=== PATIENT | male | born 1995 | race Asian ===

== ENCOUNTER 2019-06-20 10:23 | Emergency (ER) | payer MEDICAID, OTHER ==
[~2019-06-20] VITALS: Ht 172.7 cm; Wt 74.8 kg
--- NOTE | 2019-06-20 10:40 | NUR ---
Dr Gandhi at the bedside for MSE.
[2019-06-20 11:00] LABS: BASOPHILS # (AUTO) 0.1 K/uL (0.0-8.0); BASOPHILS % (AUTO) 0.9 % (0.0-2.0); EOSINOPHILS # (AUTO) 0.4 K/uL (0.0-0.7); EOSINOPHILS % (AUTO) 5.2 % (0.0-7.0); HEMATOCRIT 46.4 % (36.7-47.1); HEMOGLOBIN 15.5 g/dL (12.5-16.3); LYMPHOCYTES # (AUTO) 3.3 K/uL (20.0-40.0); LYMPHOCYTES % (AUTO) 44.3 % (20.5-51.5); MEAN CORPUSCULAR HEMOGLOBIN 31.3 uug (23.8-33.4); MEAN CORPUSCULAR HGB CONC 33 g/dL (32.5-36.3); MONOCYTES # (AUTO) 0.3 K/uL (2.0-10.0); MONOCYTES % (AUTO) 4.3 % (0.0-11.0); NEUTROPHILS # (AUTO) 3.4 K/uL (1.8-8.9); NEUTROPHILS % (AUTO) 45.3 % (38.5-71.5); PLATELET COUNT (AUTO) 265 K/uL (152-348); RED BLOOD CELL COUNT(AUTO) 4.94 MIL/uL (4.06-5.63); WHITE BLOOD COUNT (AUTO) 7.4 K/uL (3.6-10.2)
[2019-06-20 11:07] LABS: CREATININE 0.9 mg/dL (0.6-1.3)
[2019-06-20 11:45] VITALS: BP 125/85
== END 2019-06-20 11:45 | disposition home or self-care (01) ==
LOC: ER 10:23
DX: J30.9 Allergic rhinitis, unspecified (principal); J22 Unspecified acute lower respiratory infection
CPT/HCPCS: 36415; 85025; A4663